=== PATIENT | male | born 1965 | race Caucasian/White ===

== ENCOUNTER → 2024-03-27 08:07 | Outpatient (REF) | payer BC, SELFPAY | LOC: HWRAD 08:07 | PROVIDERS: ATTENDING PHYSICIAN Family Medicine Adult Medicine | DX: R79.89 Other specified abnormal findings of blood chemistry (principal) | CPT/HCPCS: 77080; 77081 ==

== ENCOUNTER → 2024-03-27 08:11 | Outpatient (REF) | payer SELFPAY | LOC: HWRAD 08:11 | PROVIDERS: ATTENDING PHYSICIAN Family Medicine Adult Medicine | DX: I10 Essential (primary) hypertension (principal) | CPT/HCPCS: 75571 ==